=== PATIENT | female | born 1960 | race Two or more races ===

== ENCOUNTER 2016-06-12 16:21 | Emergency (ER) | payer OTHER ==
[~2016-06-12] VITALS: Ht 162.6 cm; Wt 81.0 kg
[~2016-06-12 16:21] MED LIST: PANT40TA4 PO
[2016-06-12 16:28] VITALS: Ht 162.6 cm; Wt 81.0 kg
--- NOTE | 2016-06-12 17:11 | ERD ---
ER Documentation Chief Complaint Date/Time DATE: 06/12/16 TIME: 17:08 Chief Complaint RIGHT ARM PAIN/INJURY HPI This 56-year-old female who presents to emergency department today complaining of right arm pain after slipping and falling while walking outside today. Patient is not taking her medication for the pain. Denies a previous trauma. ROS All systems reviewed and are negative except as per history of present illness. Medications Home Meds Active Scripts Docusate Sodium* (Colace*) 100 Mg Capsule, 100 MG PO TID, #30 CAP Prov:ADRIAN JOHNSON PA-C 06/12/16 Ibuprofen* (Motrin*) 600 Mg Tab, 600 MG PO Q6, #30 TAB Prov:ADRIAN JOHNSON PA-C 06/12/16 Hydrocodone/Acetaminophen (Cal[place]a 5-325 Tablet) 1 Each Tablet, 1 TAB PO Q6H Y for PAIN, #20 TAB Prov:ADRIAN JOHNSON PA-C 06/12/16 Reported Medications Pantoprazole* (Pantoprazole*) 40 Mg Tablet.dr, 40 MG PO DAILY, TAB 02/24/16 Allergies Allergies: Coded Allergies: No Known Allergy (Unverified , 06/01/16) PMhx/Soc History of Surgery: No Anesthesia Reaction: No Hx Neurological Disorder: No Hx Respiratory Disorders: No Hx Cardiac Disorders: No Hx Psychiatric Problems: No Hx Miscellaneous Medical Probl: No Hx Alcohol Use: No Hx Substance Use: No Hx Tobacco Use: No Physical Exam Vitals Vital Signs Date Time Temp Pulse Resp B/P Pulse Ox O2 Delivery O2 Flow Rate FiO2 06/12/16 16:28 98.1 67 19 150/90 97 Physical Exam Const: Mild distress Head: Atraumatic Eyes: Normal Conjunctiva ENT: Normal External Ears, Nose and Mouth. Neck: Full range of motion..~ No meningismus. Resp: Clear to auscultation bilaterally Cardio: Regular rate and rhythm, no murmurs Abd: Soft, non tender, non distended. Normal bowel sounds Skin: No petechiae or rashes Back: No midline or flank tenderness MSK: Unable Able to assess range of motion secondary to pain. Mild deformity at wrist. Nontender humerus, shoulder. Tenderness at elbow joint, forearm, wrist and hand. Pulses 2+. Good cap refill. Neur: Awake and alert Psych: Normal Mood and Affect Results 24 hrs Current Medications Medications (Trade) Dose Ordered Sig/Veronica Route PRN Reason Start Time Stop Time Status Last Admin Dose Admin Acetaminophen/ Hydrocodone Bitart (Calimesa (5/325)) 1 tab ONCE ONCE PO 06/12/16 17:30 06/12/16 17:31 DC 06/12/16 17:31 Patient: CHANDU BOX : 1960 Age: 56 Sex: F MR #: [id number] DOS: 06/12/16 0000 Ordering MD: ADRIAN JOHNSON PA-C Location: [facility] Room/Bed: PROCEDURE: XR, right elbow. CLINICAL INDICATION: Pain. TECHNIQUE: 3 views of the elbow are available for review COMPARISON: None available. FINDINGS: The osseous structures, articular spaces, and surrounding soft tissues of the elbow are intact. No acute fracture or dislocation is seen. No joint effusion. No radiopaque foreign body is identified. IMPRESSION: 1. Unremarkable elbow x-ray series. RPTAT: GG .Kristian Monreal MD, MD Date Time Electronically viewed and signed by .Kristian Monreal MD, MD on 06/12/2016 18:06 .Y/ CC: ADRIAN JOHNSON PA-C Patient: CHANDU BOX : 1960 Age: 56 Sex: F MR #: [id number] DOS: 06/12/16 0000 Ordering MD: ADRIAN JOHNSON PA-C Location: [facility] Room/Bed: PROCEDURE: XR, right ankle. CLINICAL INDICATION: Pain. TECHNIQUE: 3 views of the ankle are available for review COMPARISON: None available. FINDINGS: There is acute comminuted fracture of the distal radius with mild dorsal displacement. No other acute fracture or dislocation. The joint spaces are normal. There is soft tissue swelling. IMPRESSION: 1. Acute comminuted fracture of the distal radius with mild dorsal displacement. RPTAT: GG .Kristian Monreal MD, MD Date Time Electronically viewed and signed by .Kristian Monreal MD, MD on 06/12/2016 18:10 .Y/ CC: ADRIAN JOHNSON PA-C DIAGNOSTIC IMAGING REPORT Patient: CHANDU BOX : 1960 Age: 56 Sex: F MR #: [id number] DOS: 06/12/16 0000 Ordering MD: ADRIAN JOHNSON PA-C Location: [facility] Room/Bed: PROCEDURE: XR Hand. CLINICAL INDICATION: Fall with blunt trauma to the right hand. TECHNIQUE: AP, oblique and lateral views of the right hand were obtained. COMPARISON: No prior studies are available for comparison. FINDINGS: Demineralization limits evaluation of fine osseous detail. No acute fracture or dislocation is seen. There are no significant degenerative changes. There is no significant soft tissue swelling. IMPRESSION: No acute fracture. RPTAT: [facility] Physician Jim Date Time Electronically viewed and signed by Physician Jim on 06/12/2016 18:18 RS/ CC: ADRIAN JOHNSON PA-C DIAGNOSTIC IMAGING REPORT Patient: CHANDU BOX : 1960 Age: 56 Sex: F MR #: [id number] DOS: 06/12/16 0000 Ordering MD: ADRIAN JOHNSON PA-C Location: [facility] Room/Bed: PROCEDURE: XR, right forearm. CLINICAL INDICATION: Pain. TECHNIQUE: AP and lateral views of the forearm were obtained. COMPARISON: None available. FINDINGS: There is acute comminuted intra-articular fracture of the distal radius with displacement. No other acute fracture or dislocation. The joint spaces are within normal. IMPRESSION: 1. Acute comminuted intra-articular fracture of the distal radius with displacement. RPTAT: GG .Kristian Monreal MD, Date Time Electronically viewed and signed by .Kristian Monreal MD, on 06/12/2016 18:13 .Y/ CC: ADRIAN JOHNSON PA-C Procedures/MDM This is a 56-year-old female who presents to the emergency department today complaining of right wrist pain after slipping and falling outside today. Patient did have a significant tenderness at her elbow, forearm, wrist and hand and there appeared to be some deformity at her wrist and therefore did obtain images of both areas. Per the radiology report images of the right elbow are unremarkable. Images of the right wrist and forearm show an acute comminuted fracture of the distal radius with mild dorsal displacement. There is soft tissue swelling. Images of the right hand are unremarkable. Patient's signs and symptoms consistent with distal radius fracture. Fracture is not open. Patient was placed in a sling and splint. She was given Calimesa for pain.will give the patient a prescription for for Calimesa and Colace and Motrin for home. Patient appears to have good follow-up from her primary care physician. I have explained her that she needs referral to orthopedics. She is instructed to stay in the splint and sling until seen by specialist. Spleen everything to both the patient and her son and they're in agreement with the plan. At this time the patient is stable for discharge and outpatient management. Patient should follow up with their PCP in the next 1-2 days. They may return to the emergency department sooner for any persistent or worsening of symptoms. Patient understood and agreed with the plan. Discussed the x rays with Dr. Mcrae and he is in agreement with the plan. Departure Diagnosis: Primary Impression: Radius distal fracture Encounter type: initial encounter Fracture type: closed Fracture morphology : unspecified fracture morphology Laterality: right Qualified Code: S52.501A - Closed fracture of distal end of right radius, unspecified fracture morphology, initial encounter Condition: ADRIAN Braun PA-C Jun 12, 2016 17:11
[2016-06-12] MEDS ORDERED: HYDROCODONE/APAP (5/325) TAB PO ONE (17:30)
--- NOTE | 2016-06-12 18:07 | RADRPT ---
PROCEDURE: XR, right elbow. CLINICAL INDICATION: Pain. TECHNIQUE: 3 views of the elbow are available for review COMPARISON: None available. FINDINGS: The osseous structures, articular spaces, and surrounding soft tissues of the elbow are intact. No acute fracture or dislocation is seen. No joint effusion. No radiopaque foreign body is identified . IMPRESSION: 1. Unremarkable elbow x-ray series. RPTAT: GG .Kristian Monreal MD, MD Date Time Electronically viewed and signed by .Kristian Monreal MD, on 06/12/2016 18:06 .Y/
--- NOTE | 2016-06-12 18:10 | RADRPT ---
AMENDMENT: 06/12/2016 6:17:09 PM Kristian Monreal M.D. FINDINGS: There is acute comminuted intra-articular fracture of the distal radius with mild dorsal displacemen t. No other acute fracture or dislocation. The joint spaces are normal. There is soft tissue swel ling. IMPRESSION: 1. Acute comminuted intra-articular fracture of the distal radius with mild dorsal displacement. PROCEDURE: XR, right ankle. CLINICAL INDICATION: Pain. TECHNIQUE: 3 views of the ankle are available for review COMPARISON: None available. FINDINGS: There is acute comminuted fracture of the distal radius with mild dorsal displacement. No other acu te fracture or dislocation. The joint spaces are normal. There is soft tissue swelling. IMPRESSION: 1. Acute comminuted fracture of the distal radius with mild dorsal displacement. RPTAT: GG .Kristian Monreal MD, MD Date Time Electronically viewed and signed by .Kristian Monreal MD, MD on 06/12/2016 18:16 .Y/
--- NOTE | 2016-06-12 18:14 | RADRPT ---
PROCEDURE: XR, right forearm. CLINICAL INDICATION: Pain. TECHNIQUE: AP and lateral views of the forearm were obtained. COMPARISON: None available. FINDINGS: There is acute comminuted intra-articular fracture of the distal radius with displacement. No other acute fracture or dislocation. The joint spaces are within normal. IMPRESSION: 1. Acute comminuted intra-articular fracture of the distal radius with displacement. RPTAT: GG .Kristian Monreal MD, MD Date Time Electronically viewed and signed by .Kristian Monreal MD, on 06/12/2016 18:13 .Y/
--- NOTE | 2016-06-12 18:18 | RADRPT ---
PROCEDURE: XR Hand. CLINICAL INDICATION: Fall with blunt trauma to the right hand. TECHNIQUE: AP, oblique and lateral views of the right hand were obtained. COMPARISON: No prior studies are available for comparison. FINDINGS: Demineralization limits evaluation of fine osseous detail. No acute fracture or dislocation is seen. There are no significant degenerative changes. There is no significant soft tissue swelling. IMPRESSION: No acute fracture. RPTAT: [facility] Physician Jim Date Time Electronically viewed and signed by Physician Jim on 06/12/2016 18:18 RS/
[2016-06-12] MEDS ORDERED: IBUP-1542 PO (18:37)
[2016-06-12] MEDS ORDERED: DOCU-144 PO (18:37)
[2016-06-12] MEDS ORDERED: HYDR-906 PO (18:37)
[2016-06-12 18:55] VITALS: BP 165/96; PULSE 73; RESP 18; TEMP 99.3
== END 2016-06-12 18:55 | disposition home or self-care (01) ==
LOC: FTE 16:21
DX: S52.501A Unspecified fracture of the lower end of right radius, initial encounter for closed fracture (principal); W01.0XXA Fall on same level from slipping, tripping and stumbling without subsequent striking against object, initial encounter; Y92.9 Unspecified place or not applicable
CPT/HCPCS: 29125; 73080; 73090; 73110; 73130; Z7502; Z7610

== ENCOUNTER 2017-08-11 19:37 | Emergency (ER) | END 2017-08-11 20:00 | disposition left against medical advice (07) ==

== ENCOUNTER 2017-12-18 21:17 | Emergency (ER) | END 2017-12-19 01:07 | disposition home or self-care (01) ==